=== PATIENT | female | born 1955 | race Caucasian/White ===

== ENCOUNTER 2023-07-08 17:07 | Emergency (ER) | payer BC, MEDICARE ==
[~2023-07-08] VITALS: Ht 162.6 cm; Wt 83.2 kg
[~2023-07-08 17:07] MED LIST: ATOR40TA PO; AZIL1TAB2 PO; PHEN-640 PO; PROCHC RC; PROG100C11 PO; SYN0.025T PO; WEL75T PO
[2023-07-08 18:49] VITALS: TEMP 98.2
[2023-07-08] MEDS ORDERED: normal saline 1000ml 1,000 ML IV ONE (19:35)
[2023-07-08 20:58] LABS: ALANINE AMINOTRANSFERASE 49 U/L (12-78); ALBUMIN 3.8 G/DL (3.4-5.0); ALBUMIN/GLOBULIN RATIO 0.9 (1.1-1.5); ALKALINE PHOSPHATASE 15 IU/L (46-116); ANION GAP 14 (8-16); ASPARTATE AMINO TRANSFERASE 33 U/L (10-37); BILIRUBIN,TOTAL 0.3 MG/DL (0.1-1.0); BLOOD UREA NITROGEN 15 MG/DL (7-18); BUN/CREATININE RATIO 23.1 (10.0-20.0); CALCIUM 9.4 MG/DL (8.5-10.1); CHLORIDE 96 MMOL/L (99-107); CREATININE 0.65 MG/DL (0.40-0.90); GLUCOSE 130 MG/DL (70-104); MAGNESIUM 2.2 MG/DL (1.5-2.4); POTASSIUM 3.4 MMOL/L (3.5-5.1); SODIUM 135 MMOL/L (135-145); eGFR 90 ML/MIN
[2023-07-08 22:40] LABS: BASOPHILS % (AUTO) 0.3 % (0-1); EOSINOPHILS % (AUTO) 0.2 % (0-6); HEMATOCRIT 38.5 % (35.0-45.0); HEMOGLOBIN 12.9 g/dl (12.0-16.0); LYMPHOCYTES # (AUTO) 1.2 X10'3 (1.1-4.8); MEAN CORPUSCULAR HEMOGLOBIN 29.9 PG (27.0-31.0); MEAN CORPUSCULAR HGB CONC 33.6 g/dL (33.0-36.5); MEAN CORPUSCULAR VOLUME 89.1 FL (78-98); MEAN PLATELET VOLUME 7.7 FL (7.4-10.4); MONOCYTES # (AUTO) 0.3 X10'3 (0-0.9); MONOCYTES % (AUTO) 4.8 % (2-12); NEUTROPHILS # (AUTO) 5.6 X10'3 (1.8-7.7); NEUTROPHILS % (AUTO) 77.7 % (42-75); PLATELET COUNT 255 X10'3 (140-440); RED BLOOD COUNT 4.32 X10'6 (4.20-5.60); RED CELL DISTRIBUTION WIDTH 13.3 % (11.5-14.5); WHITE BLOOD COUNT 7.2 X10'3 (4.5-11.0)
[2023-07-08 22:50] LABS: APTT 27 SECONDS (22-32)
[2023-07-08 22:55] LABS: CLARITY,URINE SLIGHTLY CLOUDY (Clear); COLOR,URINE YELLOW (Yellow); GLUCOSE, URINE NEGATIVE (Neg); KETONES,URINE 15 mg/dl (Neg); LEUKOCYTE ESTERASE ,URINE NEGATIVE (Neg); NITRITES, URINE NEGATIVE (Neg); OCCULT BLOOD,URINE NEGATIVE (Neg); PROTEIN,URINE NEGATIVE (Neg); UROBILINOGEN,URINE 0.2 E.U/dL (0.2-1.0)
[2023-07-08 23:02] LABS: UA COLLECTION TYPE STRAIGHT CATH
[2023-07-08 23:05] LABS: BACTERIA,URINE FEW /HPF (Neg); MUCUS STRANDS FEW /LPF (Neg); RBC,URINE 0-2 /HPF (0-2); SQUAMOUS EPITHELIAL CELL,UR FEW /LPF (FEW)
[2023-07-08 23:06] LABS: AMORPHOUS PHOSPHATES 3+; TRANSITIONAL EPI CELLS,URINE FEW /HPF
[2023-07-08 23:19] VITALS: BP 159/84; PULSE 76; O2SAT 95
[2023-07-08] MEDS ORDERED: HYDROcodone/acetaminophen 5mg/325mg tablet PO STA (23:44)
[2023-07-08 23:53] VITALS: RESP 18
[2023-07-09] MEDS ORDERED: HYDR-3973 PO (00:20)
== END 2023-07-09 00:35 | disposition home or self-care (01) ==
LOC: ER 17:08
DX: S42.291A Other displaced fracture of upper end of right humerus, initial encounter for closed fracture (principal); Z20.822 Contact with and (suspected) exposure to COVID-19; E78.00 Pure hypercholesterolemia, unspecified; I10 Essential (primary) hypertension; E03.9 Hypothyroidism, unspecified; Z88.8 Allergy status to other drugs, medicaments and biological substances; Z79.899 Other long term (current) drug therapy; W19.XXXA Unspecified fall, initial encounter; Y93.89 Activity, other specified; Y92.89 Other specified places as the place of occurrence of the external cause; Y99.8 Other external cause status
CPT/HCPCS: 36415; 71045; 73030; 73080; 73100; 73120; 73200; 80053; 81001; 83735; 85025; 85610; 85730; 87088; 87811; 96360; 96361; 99284; J7030; A4565